=== PATIENT | female | born 1975 | race Caucasian/White ===

== ENCOUNTER → 2017-03-23 | Day surgery (SDC) | payer OTHER ==
[~2017-03-23] MED LIST: AMOXICILLIN250 MG PO; BELLADONNA/OPIUM 60 MG SUPP PR ONE; CEFTRIAXONE SOD 1 GM VIAL ONE; CEPHALEXIN500 MG PO; FENTANYL CITRATE/PF 100MCG/2 ML INJ ONE; IOPAMIDOL 610MG/1ML 300 MG/ML VIAL IV ONE; IRON PO; LIDOCAINE HCL 2% LOCAL INJ 5 ML SDV VIAL INJ ONE; METOCLOPRAMIDE HCL 10 MG/2ML VIAL ONE; MIDAZOLAM HCL 2 MG/2 ML VIAL ONE; NITROFURANTOIN100 MG PO; ONDANSETRON HCL INJ 2 MG/ML VIAL ONE; PRENATAL COMPL1 EACH PO; PROPOFOL IV EMULSION 10 MG/ML 20 ML VIAL ONE; SEVOFLURANE INHAL SOLN 250 ML PEN BTL ONE; TYLENOL EXTRA500 MG; TYLENOL PO; TYLENOL WITH C1 EACH PO
[2017-03-23 06:05] LABS: BASOPHILS % 0.8 % (0.0-1.0); EOSINOPHILS # (AUTO) 0.1 (0.0-0.4); EOSINOPHILS % 2.1 % (0.0-6.0); HEMATOCRIT 33.3 % (34.2-44.1); HEMOGLOBIN 10.1 g/dL (12.0-16.0); LYMPHOCYTES # (AUTO) 1.5 (1.0-3.2); MEAN CORPUSCULAR HEMOGLOBIN 26.6 pg (28-32); MEAN CORPUSCULAR HGB CONC 30.3 g/dL (31-35); MEAN CORPUSCULAR VOLUME 87.9 fL (81-99); MONOCYTES # (AUTO) 0.4 (0.2-0.8); MONOCYTES % 7.4 % (4.4-11.3); NEUTROPHILS # (AUTO) 2.8 (2.1-6.9); NEUTROPHILS % 54.4 % (38.7-80.0); PLATELET COUNT 191 x10e3/uL (140-360); RED BLOOD COUNT 3.79 x10e6/uL (3.6-5.1); RED CELL DISTRIBUTION WIDTH 18.3 % (11.7-14.4)
[2017-03-23 06:25] LABS: ALANINE AMINOTRANSFERASE 14 IU/L (0-55); ALBUMIN 2.5 g/dL (3.5-5.0); ALBUMIN/GLOBULIN RATIO 0.6 (0.8-2.0); ALKALINE PHOSPHATASE 71 IU/L (40-150); BLOOD UREA NITROGEN 14 mg/dL (7-26); BUN/CREATININE RATIO 20 (6-25); CALCIUM 8.5 mg/dL (8.4-10.2); CARBON DIOXIDE 18 mmol/L (22-29); CHLORIDE 112 mmol/L (98-107); CREATININE, SERUM 0.69 mg/dL (0.57-1.11); EST GLOMERULAR FILTRATION RATE > 60 ML/MIN (60-); GLUCOSE 84 mg/dL (74-118); SODIUM 140 mmol/L (136-145)
--- NOTE | 2017-03-23 06:54 | Diagnostic Imaging Report ---
ABDOMEN-1VIEW (KUB) Clinical history: Renal stone left side Technique: AP view abdomen Comparison: CT 06/21/2016 Findings: Moderate stool burden limits evaluation for detecting renal/ureteral stones. Left double-J ureteral stent projects slightly inferior to prior, the superior coil to the left of L3 and inferior coiled over the expected bladder. Several densities are seen overlying the proximal left ureter, which may reflect overlying stool contents or stones; density overlying the distal coil, favor stool. Multiple bilateral renal calculi are again seen in distribution of medullary nephrocalcinosis. Impression: Bilateral medullary nephrocalcinosis. Left double-J ureteral stent slightly inferior migrated from prior. Several stones versus overlying stool along the proximal ureter. Signed by: Dr Maame Hobbs MD on 03/23/2017 6:50 AM
[2017-03-23 14:01] LABS: LYMPHOCYTES % (MANUAL) 25 % (19-48); METAMYELOCYTES % (MANUAL) 3 % (0-0); MONOCYTES % (MANUAL) 5 % (3.4-9.0); MYELOCYTES % (MANUAL) 1 % (0-0); NEUTROPHILS % (MANUAL) 65 % (40-74); PROMYELOCYTES % (MANUAL) 1 % (0-0)
[2017-03-23 14:02] LABS: PLATELET ESTIMATE ADEQUATE; PLATELET MORPHOLOGY COMMENT NORMAL; RBC MORPHOLOGY COMMENT NORMAL
--- NOTE | 2017-05-24 06:04 | Operative Report ---
DATE OF PROCEDURE: March 23, 2017 PREOPERATIVE DIAGNOSES 1. Left nephrolithiasis. 2. Cystolithiasis. 3. Left hydronephrosis due to stone. 4. Foreign body (indwelling ureteral stent). 5. Urinary tract infections. POSTOPERATIVE DIAGNOSES 1. Left nephrolithiasis. 2. Cystolithiasis. 3. Left hydronephrosis due to stone. 4. Foreign body (indwelling ureteral stent). 5. Urinary tract infections. 6. Grade 2 cystocele. OPERATIONS PERFORMED: Note these are all staged procedures as part of a multistage, multistep process of managing the patient's urolithiasis. 1. Left extracorporeal shock wave lithotripsy (separate procedure to fragment the large cluster of stones at the ureteropelvic junction, including the stent itself, separate procedure performed from a separate approach for the nephrolithiasis). 2. Cystolitholapaxy of a very large bladder stone encasing the intravesical portion of the stent (separate procedure performed for the diagnosis of stone). 3. Cystourethroscopy with complicated removal of left indwelling ureteral stent (separate procedure performed for that stent diagnosis). 4. Cystourethroscopy with insertion of left indwelling ureteral stent (separate procedure performed to relieve the hydronephrosis). 5. Interpretation of retrograde ureteropyelography. 6. Supervision of fluoroscopy. No radiologist present. 7. Cystourethroscopy with right ureteral catheterization and retrograde ureteropyelography (separate procedure performed to evaluate the urinary tract infections). 8. Pelvic examination under anesthesia. ANESTHESIA: General. COMPLICATIONS: None. CLINICAL SUMMARY: Rafaela Lovell is a 41-year-old woman with nephrolithiasis. She has a long-standing indwelling ureteral stent for numerous medical reasons. This procedure could not be performed at an early date. The patient is now ready to have multiple surgeries she needs in order to manage her urolithiasis. She is aware the risks of bleeding, infection, injury to adjacent structures, need for additional procedures, and elected to proceed. OPERATIVE PROCEDURE IN DETAIL: Informed consent was verified. Rafaela Lovell was properly identified and taken to the operating room, and placed on the lithotripsy table in the supine position. Anesthesia was uneventfully begun. A large cluster of 20 x 10 mm stones were localized fluoroscopically and around the stent and at the level of the ureteropelvic junction. We localized with biplanar fluoroscopy and delivered 3000 shocks with excellent fragmentation. The patient was then carefully and gently repositioned in the dorsal lithotomy position with all pressure points well-padded. Her genitalia were prepared and draped in the usual sterile fashion. The 22.5-Togolese cystoscope sheath with the obturator in place was atraumatically inserted into the patient's urethra and the bladder was drained. Panendoscopy of the urinary bladder revealed a very large portion of stone encasing the entire intravesical stent. We proceeded with fragmenting the stone progressively until it resolved off the stent. We were then able to grasp the stent and remove it in its entirety following placement of a guidewire into the left ureter and kidney. We evacuated out all stone debris from the bladder. With cystoscopic and fluoroscopic guidance, a left-sided indwelling ureteral stent was then placed. It was coiled in patient's kidney, as well as the patient's bladder. The retaining suture was cut short. The patient's bladder was then drained. Cystoscope was withdrawn. Pelvic examination under anesthesia revealed a grade 2 cystocele. No obvious mucosal lesions were identified. There were no obvious palpable pelvic masses that could be appreciated. The patient was then uneventfully reversed from anesthesia and taken to the recovery room in stable condition. Explicit postoperative instructions were given. Will plan on returning the patient to the operating for another left ESWL to treat the remainder of the stone burden that was not treated with this procedure. We also plan on performing at some point a nuclear renogram to evaluate the function and scarring of this on the left hand side. Job#: [id number] RI cc:BERNICE MAHAJAN MD
== END | disposition home or self-care (01) ==
LOC: OR 05:11
PROVIDERS: ATTEND Urology
DX: N13.2 Hydronephrosis with renal and ureteral calculous obstruction (principal); N21.0 Calculus in bladder; N39.0 Urinary tract infection, site not specified; N81.10 Cystocele, unspecified; Z46.6 Encounter for fitting and adjustment of urinary device
CPT/HCPCS: 36415; 50590; 52005; 52318; 74000; 80053; 81025; 83970; 84550; 85025; 87070; 87186; 87205; 88300; C2617; J0696; J2001; J2250; J2405; J2765; Q9967

== ENCOUNTER → 2017-04-29 | Outpatient (CLI) | payer OTHER ==
[~2017-04-29] MED LIST changes: -BELLADONNA/OPIUM 60 MG SUPP PR ONE; -CEFTRIAXONE SOD 1 GM VIAL ONE; -FENTANYL CITRATE/PF 100MCG/2 ML INJ ONE; -IOPAMIDOL 610MG/1ML 300 MG/ML VIAL IV ONE; -LIDOCAINE HCL 2% LOCAL INJ 5 ML SDV VIAL INJ ONE; -METOCLOPRAMIDE HCL 10 MG/2ML VIAL ONE; -MIDAZOLAM HCL 2 MG/2 ML VIAL ONE; -ONDANSETRON HCL INJ 2 MG/ML VIAL ONE; -PROPOFOL IV EMULSION 10 MG/ML 20 ML VIAL ONE; -SEVOFLURANE INHAL SOLN 250 ML PEN BTL ONE
--- NOTE | 2017-04-29 09:34 | Diagnostic Imaging Report ---
PROCEDURE:X-RAY ABDOMEN - KUB COMPARISON:Abdomen one view 03/23/2017. CT abdomen and pelvis 06/21/2016. INDICATIONS:CALCULUS OF KIDNEY FINDINGS: There is a non-obstructed bowel-gas pattern. Bilateral nephrolithiasis. Left ureteral stent. 5.6 mm calculus projecting over the right lower pelvis. Multiple phleboliths are present in the pelvis. There are no acute osseous abnormalities. The lung bases are clear. CONCLUSION: Bilateral nephrolithiasis. Left ureteral stent. Calcification in the lower right pelvis likely represents a phlebolith. Dictated by: Tee Wesley M.D. on 04/29/2017 at 9:43 Electronically approved by: Tee Wesley M.D. on 04/29/2017 at 9:43
== END ==
LOC: RAD 08:29
PROVIDERS: ATTEND Urology
DX: N20.0 Calculus of kidney (principal)
CPT/HCPCS: 74018

== ENCOUNTER → 2017-06-10 | Day surgery (SDC) | payer OTHER ==
[~2017-06-10] MED LIST changes: +ACETAMINOPHEN 1000 MG/100 ML IV ONE; +BELLADONNA/OPIUM 60 MG SUPP PR ONE; +CEFTRIAXONE SOD 1 GM VIAL ONE; +DEXAMETHASONE SOD PHOS INJ 4 MG/ML VIAL ONE; +FENTANYL CITRATE/PF 100MCG/2 ML INJ ONE; +IOPAMIDOL 610MG/1ML 300 MG/ML VIAL IV ONE; +LIDOCAINE HCL 2% LOCAL INJ 5 ML SDV VIAL INJ ONE; +MIDAZOLAM HCL 2 MG/2 ML VIAL ONE; +ONDANSETRON HCL INJ 2 MG/ML VIAL ONE; +PROPOFOL IV EMULSION 10 MG/ML 20 ML VIAL ONE; +SEVOFLURANE INHAL SOLN 250 ML PEN BTL ONE
--- OUTSIDE RECORDS SUMMARY | 2017-06-10 13:34 | XMS REPORT ---
Author Author [facility] Address Unknown Phone Unavailable Care Team Providers Care Human Resource Statistician Name Role Phone NAZANIN CLINTON Unavailable Unavailable Problems This patient has no known problems. Allergies, Adverse Reactions, Alerts This patient has no known allergies or adverse reactions. Medications This patient has no known medications. Results Test Description Test Time Test Comments Text Results Atomic Results Result Comments ABDOMEN-1VIEW (KUB) [place] [address] Patient Name: MICHELLE FLETCHER MR #: [id number] : 1975 Age/Sex: 41/F Req #: [id number] Adm Physician: Ordered by: NAZANIN CLINTON MD Report #: [id number] Location: [facility] Room/Bed: Procedure: [id number] DX/ABDOMEN-1VIEW (KUB) Exam Date: 04/29/17 Exam Time: 0855 REPORT STATUS: Signed PROCEDURE: X-RAY ABDOMEN - KUB COMPARISON: Abdomen one view 03/23/2017. CT abdomen and pelvis 06/21/2016. INDICATIONS: CALCULUS OF KIDNEY FINDINGS: There is a non-obstructed bowel-gas pattern. Bilateral nephrolithiasis. Left ureteral stent. 5.6 mm calculus projecting over the right lower pelvis. Multiple phleboliths are present in the pelvis. There are no acute osseous abnormalities. The lung bases are clear. CONCLUSION: Bilateral nephrolithiasis. Left ureteral stent. Calcification in the lower right pelvis likely represents a phlebolith. Dictated by: Rhys Haas M.D. on 04/29/2017 at 9:43 Electronically approved by: Rhys Haas M.D. on 04/29/2017 at 9:43 Dictated By : RHYS HAAS MD 2 Transcribed By: RUMA on 04/29/17942 COPY TO: NAZANIN CLINTON MD ABDOMEN-1VIEW (KUB) [place] [address] Patient Name: MICHELLE FLETCHER MR #: [id number] : 1975 Age/Sex: 41/F Req #: [id number] Adm Physician: Ordered by: NAZANIN CLINTON MD Report #: [id number] Location: OR Room/Bed: Procedure: [id number] DX/ABDOMEN-1VIEW (KUB) Exam Date: 03/23/17 Exam Time: 0617 REPORT STATUS: Signed ABDOMEN-1VIEW (KUB) Clinical history: Renal stone left side Technique: AP view abdomen Comparison: CT 06/21/2016 Findings: Moderate stool burden limits evaluation for detecting renal/ureteral stones. Left double-J ureteral stent projects slightly inferior to prior, the superior coil to the left of L3 and inferior coiled over the expected bladder. Several densities are seen overlying the proximal left ureter, which may reflect overlying stool contents or stones; density overlying the distal coil, favor stool. Multiple bilateral renal calculi are again seen in distribution of medullary nephrocalcinosis. Impression: Bilateral medullary nephrocalcinosis. Left double-J ureteral stent slightly inferior migrated from prior. Several stones versus overlying stool along the proximal ureter. Signed by: Dr Niyah Hobbs MD on 03/23/2017 6:50 AM Dictated By: NIYAH HOBBS MD 9 Transcribed By: SADE on 03/23/17649 COPY TO: NAZANIN CLINTON MD US RENAL RETROPERITONEAL COMP [place] [address] Patient Name: MICHELLE FLETCHER MR #: [id number] : 1975 Age/Sex: 41/F Req #: [id number] Adm Physician: Ordered by: NAZANIN CLINTON MD Report #: [id number] Location: Room/Bed: Procedure: [id number] US/US RENAL RETROPERITONEAL COMP Exam Date: Exam Time: REPORT STATUS: Signed PROCEDURE: US RETROPERITONEAL ( KIDNEY ). COMPARISON: CT abdomen and pelvis 06/21/2016 INDICATIONS: Urination urgency, Calculus Of Bladder TECHNIQUE: Gomez-scale and color sonographic images of the bilateral kidneys and bladder where obtained in transverse and longitudinal planes. FINDINGS: RIGHT KIDNEY: 13.1 x 5.0 x 6.8 cm, cortex 1.1 cm (mildly thinned) Cysts: 1.0 x 1.4 x 1.6 cm anechoic simple cyst in the lower pole. 1.4 x 1.3 x 1.4 cm simple cyst in the superior pole. Solid masses: None Stones: Numerous echogenic foci consistent known to medullary nephrocalcinosis. Several stones identified. Hydronephrosis: None Echogenicity: Normal LEFT KIDNEY: 11.8 x 6.2 x 6.3 cm, cortex 1.6 cm Cysts: None Solid masses: None Stones: Numerous echogenic foci consistent with known medullary nephrocalcinosis. Several stones identified. Hydronephrosis: Moderate hydronephrosis with ureteral stent visualized. Echogenicity: Normal Bladder: Normal. Ureteral stent is visualized. Prevoid volume: 191.5 mL. Post void volume: 12.6 mL. CONCLUSION: 1. Unchanged moderate left hydronephrosis. 2. Bilateral medullary nephrocalcinosis with more discrete stones identified especially in the left kidney. 3. No significant postvoid residual in the bladder. Normal bladder. Dictated by : Rick Phan M.D. on 12/02/2016 at 11:36 Electronically approved by: Rick Phan M.D. on 12/02/2016 at 11:36 Dictated By: RICK PHAN MD 113 Transcribed By: RUMA on 12/02/16 113 COPY TO: NAZANIN CLINTON MD US PELVIC (NON OB) RESENDIZ OR F/U [place] [address] Patient Name: MICHELLE FLETCHER MR #: [id number] : 1975 Age/Sex: 41/F Req #: [id number] Adm Physician: Ordered by: NAZANIN CLINTON MD Report #: [id number] Location: Room/Bed: Procedure: [id number] US/US PELVIC (NON OB) RESENDIZ OR F/U Exam Date: Exam Time: REPORT STATUS: Signed PROCEDURE: US PELVIC (NON OB) RESENDIZ OR F/U (bladder ultrasound) COMPARISON: CT abdomen and pelvis 06/21/2016. INDICATIONS: Urination urgency. Stones. TECHNIQUE: A pelvic ultrasound was completed in the usual manner. Pre-and postvoid bladder. FINDINGS: Bladder: Normal appearance. Ureteral stent identified. Prevoid volume: 6.9 x 5.9 x 5.9 cm. Post void volume: 2.97 x 2.58 x 3.13 cm. CONCLUSION: No significant postvoid residual. Normal bladder. Dictated by: Rick Phan M.D. on 12/02/2016 at 11:38 Electronically approved by: Rick Phan M.D. on 12/02/2016 at 11:38 Dictated By: RICK PHAN MD [id number] Transcribed By: RUMA on 12/02/16 1138 COPY TO: NAZANIN CLINTON MD
--- NOTE | 2017-06-10 15:18 | Diagnostic Imaging Report ---
PROCEDURE:X-RAY ABDOMEN - KUB COMPARISON:04/29/17 INDICATIONS:PREOPERATIVE XRAY FOR ESWL SURGERY FINDINGS: Nonobstructive bowel gas pattern. No signs of pneumoperitoneum. Left nephroureteral stent is again seen, unchanged. Overall the right renal stone burden is slightly decreased from prior exam. The largest calculus is in the mid pole measuring 0.6 cm. Cluster of tiny calcifications overlying left renal inferior pole which appears less conspicuous from prior exam. There are new calcifications overlying the renal pelvis, representing bladder calculi. The there is interval decrease in size of calcification overlying right pelvis/sacrum, now measuring 0.9 cm, previously 1.9 cm.. CONCLUSION: Overall decreased right renal stone burden when compared to prior x-ray. Multiple new calcification overlying pelvis, representing multiple new bladder calculi. The calcification overlying right pelvis/sacrum has also decreased in size and may represent bladder or right ureteral calculi. Nonobstructive bowel gas pattern. Dictated by: Michele Ferrari M.D. on 06/10/2017 at 15:18 Electronically approved by: Michele Ferrari M.D. on 06/10/2017 at 15:18
--- NOTE | 2017-07-27 11:21 | Operative Report ---
DATE OF PROCEDURE: June 10, 2017 PREOPERATIVE DIAGNOSES 1. Bilateral nephrolithiasis. 2. Foreign body (left indwelling ureteral stent). POSTOPERATIVE DIAGNOSES 1. Bilateral nephrolithiasis. 2. Foreign body (left indwelling ureteral stent). 3. Cystocele. 4. Rectocele. 5. Urethral hypermobility. PROCEDURES PERFORMED: Note these are all staged procedures as part of multistage, multistep process in managing the patient's urolithiasis: 1. Right-sided extracorporeal shockwave lithotripsy (separate procedure performed for the right nephrolithiasis). 2. Cystourethroscopy with complicated removal of left indwelling ureteral stent (separate procedure performed for diagnosis of a left-sided stent). 3. Left complicated and recurrent ureteroscopy with stone manipulation and extraction (separate procedure performed for multiple ureteral stones). 4. Radiological services for supervision and interpretation of ureteroscopy. 5. Interpretation of retrograde ureteropyelography. 6. Supervision of fluoroscopy, no radiologist present. 7. Pelvic examination under anesthesia. ANESTHESIA: General. COMPLICATIONS: None. CLINICAL SUMMARY: Rafaela Lovell is a 41-year-old woman with bilateral nephrolithiasis who has undergone multiple stone procedures. She is brought to the operating room today in hopes of managing both stones on both sides and rendering the patient free of stents. She is aware of the risks of bleeding, infection, injury to adjacent structures, need for additional procedures and elected to proceed. OPERATIVE PROCEDURE IN DETAIL: Informed consent was verified. Rafaela Lovell was properly identified, taken to the operating room, placed on the lithotripsy table in supine position. Anesthesia was uneventfully begun. The patient's right nephrolithiasis was localized with biplanar fluoroscopy. Total of 3000 shocks were delivered with excellent fragmentation of the 6-mm stone present in lower pole nancy. The patient was then carefully and gently repositioned in the dorsal lithotomy position with all pressure points well padded. Her genitalia were prepared and draped in usual sterile fashion. The 22.5-Scottish cystourethroscope sheath with obturator in place was atraumatically inserted into the patient's urethra, and the bladder was drained. Panendoscopy of the urinary bladder revealed no suspicious mucosal lesions, no tumors, no stones and no diverticula. There was a stent emerging from the left ureteral orifice. A guidewire was then placed alongside the stent and guided to the level of the patient's kidney. The stent was then grasped, completely removed and discarded. A semirigid ureteroscopy was then performed atraumatically. We inserted the semirigid ureteroscope into the left ureter. The distal ureter exhibited no stones. Flexible ureteroscope was then placed over the guidewire and guided to the level of the patient's kidney. Panendoscopy revealed multiple stone fragments. We realized that there were multiple stone fragments, and it would be safest to utilize a flexible ureteroscopy sheath. Therefore, over a guidewire we atraumatically placed a flexible ureteroscopy sheath and guided it with fluoroscopic guidance. We then performed repeated numerous left ureteroscopy with stone manipulation and extraction procedures. All significantly sized stone fragments were extracted from the left-hand side. Enrique plaques remained as well as fine sand that should be passable but that was also too small to grasp with the basket. Once all stones that were larger than a millimeter were removed, we carefully re-examined the entire intrarenal collecting system and found no additional work to be done. We then carefully examined the ureter as we exited. The ureter exhibited no stones, no tumors and no strictures. There was no significant trauma from the flexible ureteroscopy sheath. Interpretation of retrograde ureteral pyelography: Contrast was instilled in retrograde fashion on the left-hand side. There was chronic-appearing hydronephrosis. Some caliceal blunting was noted. There was no extravasation. The ureter was unremarkable. Unobstructed drainage was observed fluoroscopically. The patient's bladder was drained. The cystoscope was withdrawn. Pelvic examination under anesthesia revealed a mild cystocele and mild rectocele. There was urethral hypermobility present. A belladonna and opium suppository was placed. The patient was uneventfully reversed from anesthesia and taken to the recovery room in stable condition. There were no complications to the procedure. He tolerated the procedure well. Explicit postoperative instructions were given. We will plan on following the patient up in the office as well as on a long-term basis. Job#: [id number] cc:BERNICE DIAZ MD
== END | disposition home or self-care (01) ==
LOC: OR 13:30
PROVIDERS: ATTEND Urology
DX: N20.0 Calculus of kidney (principal); N20.1 Calculus of ureter; Z46.6 Encounter for fitting and adjustment of urinary device; N13.30 Unspecified hydronephrosis; N28.89 Other specified disorders of kidney and ureter; N81.10 Cystocele, unspecified; N81.6 Rectocele; N36.41 Hypermobility of urethra; N39.0 Urinary tract infection, site not specified; N39.3 Stress incontinence (female) (male); Z84.1 Family history of disorders of kidney and ureter
CPT/HCPCS: 50590; 52352; 74018; 81025; 88300; J0696; J1100; J2001; J2250; J2405; Q9967